=== PATIENT | female | born 1970 | race Caucasian/White ===

== ENCOUNTER 2016-12-09 16:15 | Emergency (ER) | payer OTHER ==
[~2016-12-09 16:15] MED LIST: ACETAMINOPHEN PO; ACETAMINOPHEN325 MG PO; ASPIRIN81 MG PO; ATIVAN PO; BAYER CHEWABLE81 MG PO; CIPRO PO; FAMOTIDINE PO; HUMALOG100 U/ML SQ; HUMALOG100 U/ML SUBQ; HUMULIN 70/30 V10 ML SUBQ; HUMULIN R100 U/ML SUBQ; INSULIN PUMP R1 EACH; KLOR-CON PO; LANTUS100 U/ML; LANTUS100 U/ML SQ; LANTUS100 U/ML SUBQ; LANTUS100 UNITS/ SUBQ; LEVAQUIN PO; MEDROL DOSEPAK4 MG DOB; NEURONTIN300 MG PO; NITROGLYCERIN0.4 MG SL; NOVOLIN R100 UNITS/ INJ; NOVOLIN R100 UNITS/ SUBQ; NOVOLOG100 UNITS/ SUBQ; PHENERGAN25 MG PO; REGLAN PO; TRAMADOL HCL50 M1 PO; VICODIN 5/1 TAB 5/50 PO; [UNRECOGNIZED DRUG - OTHER] SQ
== END 2016-12-09 16:24 | disposition home or self-care (01) ==
LOC: SED 16:15
DX: H60.93 Unspecified otitis externa, bilateral (principal); E11.9 Type 2 diabetes mellitus without complications
CPT/HCPCS: 99282